=== PATIENT | male | born 1960 | race Caucasian/White ===

== ENCOUNTER 2016-08-12 15:05 | Inpatient (IN) | payer OTHER ==
[~2016-08-12] VITALS: Ht 180.3 cm; Wt 62.6 kg
--- NOTE | ~2016-08-12 | CON ---
[place], [place] REPORT OF CONSULTATION NAME: RAMANA GOMEZ UNIT #: [id number] ROOM: [facility] DOCTOR: MISHA MASON BIRTHDATE: [birth year] DOS: 08/16/2016 PSYCH CONSULT HISTORY OF PRESENT ILLNESS: This is a 55-year-old male who presents to the [facility] due to alcohol withdrawal. States that he has been drinking since at very young age because of his essential tremors and now he drinks a bottle of rum per day, states his last drink was last night. Girlfriend who is also the POA states that he has not gotten out of his recliner, ate anything in almost a week. At that time, he has been coughing so hard that he vomit. He admits to having nausea and vomiting, upset stomach, chills, diarrhea, episodes of loose stool. The patient is in the ICU for withdrawals. At that time, he was having diffuse body-wide tremors and was started on Librium and also because of his low potassium level, they hung up on the antibiotic. PAST MEDICAL HISTORY: Includes chronic alcohol abuse, approximately one bottle of rum a day, contact dermatitis, delirium tremors, depression, alcohol liver disease, essential tremors, hemorrhoids, hypertension, leukopenia, pancolitis, history of pneumonia, seizures due to alcohol withdrawal, thrombocytopenia, Wernicke encephalopathy. HOSPITAL COURSE: The ICU doctors did start him on Librium and withdrawal protocols. Eventually, they were able to get out of him that he did have these essential tremors and that he was on Inderal LA to help with them. I did speak with his nurse. She states that his tremors have improved since beginning this medication. The patient is denying feeling like he is going through alcohol withdrawals. However, the nurse did bring to my attention that he has not slept in 2 or 3 days and that he endorses positive hallucinations. DIAGNOSIS: Alcohol withdrawal. MENTAL STATUS: The patient is very soft spoken. It is difficult to understand him at times, but he appears to be alert and oriented to person and place. There are hallucinations per nursing, some delusions. No paranoia. No pham or hypomania. Poor sleep, poor appetite but the patient is eating at bedside right as we speak. PLAN: I concur with the Librium that the doctors have him on. I am going to go ahead and pull away on the trazodone, it is ineffective, it is not working. The nurses also state that the Ativan is not touching him as far as helping him get to sleep and based on this and the fact that he is having hallucinations, I am going to start him on 50 mg of Seroquel in the morning and 100 mg at night. My goal is to break the psychosis, the hallucinations, but also at these doses there should be enough of sedation quality. I will follow up with nurses in the morning then and see if this dose helped with his sleep. If not, I will titrate this up. As the hallucinations clear and his sleep is returned, most likely the Seroquel can be discontinued. [place], [place] REPORT OF CONSULTATION NAME: RAMANA GOMEZ UNIT #: [id number] ROOM: [facility] DOCTOR: MISHA MASON BIRTHDATE: [birth year] MOSUTAPHA MASON CNP CM:CONSTR:REPORT OF CONSULTATION [id number] 08/17/16 0145 interface
[~2016-08-12 15:05] MED LIST: 'CLONIDINE0.1 MG PO; ASPIRIN ADULT L81 MG PO; ATARAX,VISTARIL50 MG PO; ATIVAN0.5 MG PO; CHLORDIAZEPOXID25 MG PO; DAYPRO600 M1 PO; DOXYCYCLINE100 MG PO; FLAGYL500 MG PO; FOLIC ACID1 MG PO; HYDROCHLOROTHIA25 MG PO; K LYTE PO; LIBRIUM25 MG PO; LISINOPRIL20 MG PO; LISINOPRIL40 MG PO; MAGNESIUM OXID400 MG PO; MULTIVITAMIN1 TA1 PO; Mysoline50 MG PO; NATURE'S BLEND F1 MG PO; NICODERM21 MG/24 H TD; PRIMIDONE1 GM PO; PROPRANOLOL ER PO; PROPRANOLOL HC160 M1 PO; PROPRANOLOL HCL10 MG PO; PROPRANOLOL HYD60 MG PO; PROTONIX40 MG PO; SYMBICORT1 AE1 INH; THERA TABS1 TAB PO; THIAMINE100 MG PO; VENTOLIN H0.09 MG/AC INH; VITAMIN B-11 TAB PO; [UNRECOGNIZED DRUG - OTHER] PO
[2016-08-12 15:07] VITALS: BP 150/102
[2016-08-12 15:31] LABS: HEMATOCRIT 35.5 % (42.0-52.0); HEMOGLOBIN 13.1 g/dl (14.0-18.0); MEAN CELL VOLUME 97.3 fl (80.0-94.0); MEAN CORPUSCULAR HGB 35.9 pg (27.0-31.0); MEAN CORPUSCULAR HGB CONC 36.9 g/dl (33.0-37.0); MEAN PLATELET VOLUME 11.6 fl (9.6-12.3); PLATELET COUNT AUTOMATED 40 10*3/uL (130-400); RED BLOOD COUNT 3.65 10*6/uL (4.50-5.90); RED CELL DISTRI WIDTH 15.2 % (0-14.5); WHITE BLOOD COUNT 4.2 10*3/uL (4.8-10.8)
[2016-08-12 15:47] LABS: ALBUMIN 3.9 gm/dl (3.1-4.5); ALKALINE PHOSPHATASE 106 U/L (45-117); BILIRUBIN, TOTAL 1.6 mg/dl (0.2-1.0); BUN 6 mg/dl (7-24); CARBON DIOXIDE 31 mmol/L (21-32); CHLORIDE 94 mmol/L (98-107); CPK 184 U/L (39-308); EST GLOM FILT AFRICAN AMERICAN > 60 ml/min; GLUCOSE 159 mg/dL (65-99); POTASSIUM 2.9 mmol/L (3.5-5.1); SGOT/AST 124 IU/L (3-35); SGPT/ALT 39 U/L (12-78); SODIUM 139 mmol/L (136-145); TOTAL PROTEIN 7.8 gm/dL (6.4-8.2)
[2016-08-12 15:48] LABS: CKMB 1.1 ng/ml (0.5-3.6)
[2016-08-12 15:51] LABS: HYPOCHROMIA SLIGHT; LYMPHOCYTE # 0.5 10*3/uL (1.3-4.4); MONOCYTE # 0.3 10*3/uL (0.1-1.0); NEUTROPHIL # 3.4 10*3/uL (2.3-7.9); NEUTROPHILS 80 % (47-73); PLATELET SUFFICIENCY LOW (NORMAL); TOTAL CELLS COUNTED 100 #CELLS; TOXIC GRANULATION SLIGHT
[2016-08-12 15:52] LABS: TROPONIN I < 0.015 ng/ml (<0.045)
[2016-08-12 15:54] LABS: THYROID STIM HORMONE (HS) 0.469 uIU/ml (0.358-4.75)
[2016-08-12 17:30] VITALS: BP 148/97
[2016-08-12 18:54] VITALS: BP 141/88
[2016-08-12 20:00] VITALS: BP 150/87
[2016-08-13] VITALS: BP 135/89
[2016-08-13 04:00] VITALS: BP 125/81
[2016-08-13 04:01] LABS: BILIRUBIN NEGATIVE (NEGATIVE); BLOOD NEGATIVE (NEGATIVE); CLARITY CLEAR (CLEAR); COLOR YELLOW (YELLOW); GLUCOSE NEGATIVE (NEGATIVE); KETONE 1+ (NEGATIVE); LEUKO ESTERASE NEGATIVE (NEGATIVE); NITRITE NEGATIVE (NEGATIVE); PH 6.5 (5.0-9.0); PROTEIN NEGATIVE (NEGATIVE); SPECIFIC GRAVITY <= 1.005 (1.005-1.030)
[2016-08-13 04:10] LABS: URINE AMPHETAMINES < 1000 (1000ng/ml); URINE BARBITURATES > 200 (200ng/ml); URINE COCAINE < 300 (300ng/ml)
[2016-08-13 04:13] LABS: URINE REFLEX COMMENT NO (NO); WBC 0-2 wbc/hpf (0-5)
[2016-08-13 07:28] LABS: BASO % 0.5 % (0.0-1.0); EOS # 0.1 10*3/uL (0.0-0.4); EOS % 1.2 % (1.0-4.0); HEMATOCRIT 33.9 % (42.0-52.0); HEMOGLOBIN 12.2 g/dl (14.0-18.0); LYMPH # 1.2 10*3/uL (1.3-4.4); LYMPH % 29.1 % (27.0-41.0); MEAN CELL VOLUME 98.8 fl (80.0-94.0); MEAN CORPUSCULAR HGB 35.6 pg (27.0-31.0); MEAN PLATELET VOLUME 12.1 fl (9.6-12.3); MONO # 0.4 10*3/uL (0.1-1.0); MONO % 8.7 % (3.0-9.0); NEUT # 2.4 10*3/uL (2.3-7.9); NEUT % 59.8 % (47.0-73.0); PLATELET COUNT AUTOMATED 38 10*3/uL (130-400); RED BLOOD COUNT 3.43 10*6/uL (4.50-5.90); RED CELL DISTRI WIDTH 15.3 % (0-14.5)
[2016-08-13 07:29] LABS: HEMOGLOBIN A1c 5.4 % (4.8-5.6)
[2016-08-13 07:32] LABS: BUN 4 mg/dl (7-24); CARBON DIOXIDE 30 mmol/L (21-32); CHLORIDE 98 mmol/L (98-107); GLUCOSE 75 mg/dL (65-99); MAGNESIUM 1.6 mg/dL (1.5-2.1); PHOSPHOROUS 1.9 mg/dL (2.5-4.9); SODIUM 142 mmol/L (136-145)
[2016-08-13 07:33] LABS: PROTHROMBIN TIME 10.7 SECONDS (9.0-12.4)
[2016-08-13 07:42] LABS: CHOLESTEROL 160 mg/dL (<200); EST GLOM FILT AFRICAN AMERICAN > 60 ml/min; FREE T4 0.95 ng/dl (0.76-1.46); HDL CHOLESTEROL 129 mg/dl (40-60); LDL CHOLESTEROL 11 mg/dL (9-159); THYROID STIM HORMONE (HS) 0.973 uIU/ml (0.358-4.75); TRIGLYCERIDES 100 mg/dl (<150); VLDL CHOLESTEROL 20 mg/dL (6-40)
[2016-08-13 07:47] LABS: POTASSIUM 2.3 mmol/L (3.5-5.1)
[2016-08-13 08:00] VITALS: BP 131/91
[2016-08-13 08:18] LABS: VITAMIN D, 25-HYDROXY 10.8 ng/mL (30-100)
[2016-08-13 08:19] LABS: FOLIC ACID 10.21 ng/mL (>5.38)
[2016-08-13 12:00] VITALS: BP 133/84
[2016-08-13 16:00] VITALS: BP 124/86
[2016-08-13 20:00] VITALS: BP 121/81
[2016-08-14] VITALS: BP 128/86
[2016-08-14 04:05] VITALS: BP 113/67
[2016-08-14 08:00] VITALS: BP 127/83
[2016-08-14 11:05] LABS: BUN 6 mg/dl (7-24); CARBON DIOXIDE 31 mmol/L (21-32); CHLORIDE 104 mmol/L (98-107); EST GLOM FILT AFRICAN AMERICAN > 60 ml/min; GLUCOSE 128 mg/dL (65-99); MAGNESIUM 1.3 mg/dL (1.5-2.1); PHOSPHOROUS 2.5 mg/dL (2.5-4.9); POTASSIUM 2.6 mmol/L (3.5-5.1); SODIUM 143 mmol/L (136-145)
[2016-08-14 12:00] VITALS: BP 131/87
[2016-08-14 16:00] VITALS: BP 106/71
[2016-08-14 20:00] VITALS: BP 120/78
[2016-08-15] VITALS: BP 144/86
[2016-08-15 04:00] VITALS: BP 137/79
[2016-08-15 05:53] LABS: BUN 6 mg/dl (7-24); CARBON DIOXIDE 29 mmol/L (21-32); CHLORIDE 106 mmol/L (98-107); EST GLOM FILT AFRICAN AMERICAN > 60 ml/min; GLUCOSE 90 mg/dL (65-99); SODIUM 147 mmol/L (136-145)
[2016-08-15 06:05] LABS: POTASSIUM 2.4 mmol/L (3.5-5.1)
[2016-08-15 08:00] VITALS: BP 173/91
[2016-08-15 12:00] VITALS: BP 168/93
[2016-08-15 12:26] LABS: ALBUMIN 3.1 gm/dl (3.1-4.5); ALKALINE PHOSPHATASE 69 U/L (45-117); BILIRUBIN, TOTAL 0.6 mg/dl (0.2-1.0); BUN 6 mg/dl (7-24); CARBON DIOXIDE 33 mmol/L (21-32); CHLORIDE 106 mmol/L (98-107); EST GLOM FILT AFRICAN AMERICAN > 60 ml/min; GLUCOSE 106 mg/dL (65-99); POTASSIUM 2.9 mmol/L (3.5-5.1); SGOT/AST 55 IU/L (3-35); SGPT/ALT 36 U/L (12-78); SODIUM 146 mmol/L (136-145); TOTAL PROTEIN 6.3 gm/dL (6.4-8.2)
[2016-08-15 12:32] LABS: MAGNESIUM 1.6 mg/dL (1.5-2.1)
[2016-08-15] MEDS ORDERED: MYSOLINE50 M2 PO (13:16)
[2016-08-15] MEDS ORDERED: INDERAL LA160 M1 PO (13:27)
[2016-08-15] MEDS ORDERED: ZESTRIL20 MG PO (13:31)
[2016-08-15] MEDS ORDERED: NALTREXONE50 MG PO (13:32)
[2016-08-15 16:00] VITALS: BP 131/86
[2016-08-15 20:06] VITALS: BP 147/93
[2016-08-16] VITALS: BP 150/97
[2016-08-16 04:00] VITALS: BP 157/98; BP 164/92
[2016-08-16 05:33] LABS: ALBUMIN 3.3 gm/dl (3.1-4.5); ALKALINE PHOSPHATASE 68 U/L (45-117); BILIRUBIN, TOTAL 0.6 mg/dl (0.2-1.0); BUN 7 mg/dl (7-24); CARBON DIOXIDE 31 mmol/L (21-32); CHLORIDE 106 mmol/L (98-107); EST GLOM FILT AFRICAN AMERICAN > 60 ml/min; GLUCOSE 104 mg/dL (65-99); POTASSIUM 2.8 mmol/L (3.5-5.1); SGOT/AST 45 IU/L (3-35); SGPT/ALT 37 U/L (12-78); SODIUM 146 mmol/L (136-145); TOTAL PROTEIN 6.4 gm/dL (6.4-8.2)
[2016-08-16 06:02] LABS: BASO % 0.7 % (0.0-1.0); EOS # 0.2 10*3/uL (0.0-0.4); EOS % 3.5 % (1.0-4.0); HEMATOCRIT 32.7 % (42.0-52.0); HEMOGLOBIN 11.4 g/dl (14.0-18.0); LYMPH # 1.2 10*3/uL (1.3-4.4); LYMPH % 25.9 % (27.0-41.0); MEAN CELL VOLUME 101.2 fl (80.0-94.0); MEAN CORPUSCULAR HGB 35.3 pg (27.0-31.0); MEAN CORPUSCULAR HGB CONC 34.9 g/dl (33.0-37.0); MEAN PLATELET VOLUME 10.9 fl (9.6-12.3); MONO # 0.7 10*3/uL (0.1-1.0); MONO % 14.4 % (3.0-9.0); NEUT # 2.5 10*3/uL (2.3-7.9); NEUT % 55.3 % (47.0-73.0); PLATELET COUNT AUTOMATED 107 10*3/uL (130-400); RED BLOOD COUNT 3.23 10*6/uL (4.50-5.90); RED CELL DISTRI WIDTH 15.7 % (0-14.5); WHITE BLOOD COUNT 4.5 10*3/uL (4.8-10.8)
[2016-08-16 06:14] VITALS: BP 160/95
[2016-08-16 12:00] VITALS: BP 120/88
[2016-08-16 16:00] VITALS: BP 128/90
[2016-08-16 20:00] VITALS: BP 125/86
[2016-08-17] VITALS: BP 135/90
[2016-08-17 04:00] VITALS: BP 144/91
[2016-08-17 06:05] LABS: ALBUMIN 3.2 gm/dl (3.1-4.5); ALKALINE PHOSPHATASE 67 U/L (45-117); BILIRUBIN, TOTAL 0.6 mg/dl (0.2-1.0); BUN 8 mg/dl (7-24); CARBON DIOXIDE 31 mmol/L (21-32); CHLORIDE 108 mmol/L (98-107); EST GLOM FILT AFRICAN AMERICAN > 60 ml/min; GLUCOSE 96 mg/dL (65-99); MAGNESIUM 2.1 mg/dL (1.5-2.1); POTASSIUM 3.1 mmol/L (3.5-5.1); SGOT/AST 42 IU/L (3-35); SGPT/ALT 36 U/L (12-78); SODIUM 148 mmol/L (136-145); TOTAL PROTEIN 6.4 gm/dL (6.4-8.2)
[2016-08-17 06:12] LABS: BASO % 0.7 % (0.0-1.0); EOS # 0.2 10*3/uL (0.0-0.4); EOS % 3.5 % (1.0-4.0); HEMATOCRIT 33.4 % (42.0-52.0); HEMOGLOBIN 11.9 g/dl (14.0-18.0); LYMPH # 1.3 10*3/uL (1.3-4.4); LYMPH % 28.8 % (27.0-41.0); MEAN CELL VOLUME 102.1 fl (80.0-94.0); MEAN CORPUSCULAR HGB 36.4 pg (27.0-31.0); MEAN CORPUSCULAR HGB CONC 35.6 g/dl (33.0-37.0); MEAN PLATELET VOLUME 10.2 fl (9.6-12.3); MONO # 0.9 10*3/uL (0.1-1.0); MONO % 18.8 % (3.0-9.0); NEUT # 2.2 10*3/uL (2.3-7.9); NEUT % 47.8 % (47.0-73.0); RED BLOOD COUNT 3.27 10*6/uL (4.50-5.90); RED CELL DISTRI WIDTH 15.6 % (0-14.5); WHITE BLOOD COUNT 4.6 10*3/uL (4.8-10.8)
[2016-08-17 06:17] LABS: PLATELET COUNT AUTOMATED 146 10*3/uL (130-400)
[2016-08-17 07:50] VITALS: BP 152/94
[2016-08-17 12:00] VITALS: BP 106/61
[2016-08-17 15:47] VITALS: BP 102/60
[2016-08-17 20:00] VITALS: BP 149/85
[2016-08-18] VITALS: BP 138/72
[2016-08-18 04:00] VITALS: BP 156/76
[2016-08-18 06:22] LABS: BASO % 0.6 % (0.0-1.0); EOS # 0.1 10*3/uL (0.0-0.4); EOS % 2.9 % (1.0-4.0); HEMATOCRIT 31.7 % (42.0-52.0); HEMOGLOBIN 11.3 g/dl (14.0-18.0); LYMPH # 1.4 10*3/uL (1.3-4.4); LYMPH % 30.3 % (27.0-41.0); MEAN CELL VOLUME 102.3 fl (80.0-94.0); MEAN CORPUSCULAR HGB 36.5 pg (27.0-31.0); MEAN CORPUSCULAR HGB CONC 35.6 g/dl (33.0-37.0); MEAN PLATELET VOLUME 10.4 fl (9.6-12.3); MONO # 0.9 10*3/uL (0.1-1.0); MONO % 18.7 % (3.0-9.0); NEUT # 2.2 10*3/uL (2.3-7.9); NEUT % 47.1 % (47.0-73.0); RED CELL DISTRI WIDTH 15.5 % (0-14.5); WHITE BLOOD COUNT 4.8 10*3/uL (4.8-10.8)
[2016-08-18 06:26] LABS: PLATELET COUNT AUTOMATED 194 10*3/uL (130-400)
[2016-08-18 06:30] LABS: ALBUMIN 2.9 gm/dl (3.1-4.5); BUN 10 mg/dl (7-24); CARBON DIOXIDE 31 mmol/L (21-32); CHLORIDE 105 mmol/L (98-107); GLUCOSE 97 mg/dL (65-99); MAGNESIUM 1.7 mg/dL (1.5-2.1); POTASSIUM 3.1 mmol/L (3.5-5.1); SODIUM 144 mmol/L (136-145)
[2016-08-18 06:34] LABS: ALKALINE PHOSPHATASE 65 U/L (45-117); BILIRUBIN, TOTAL 0.5 mg/dl (0.2-1.0); EST GLOM FILT AFRICAN AMERICAN > 60 ml/min; SGOT/AST 32 IU/L (3-35); SGPT/ALT 35 U/L (12-78); TOTAL PROTEIN 6.2 gm/dL (6.4-8.2)
[2016-08-18 08:00] VITALS: BP 140/70
[2016-08-18 12:00] VITALS: BP 113/65
[2016-08-18 16:00] VITALS: BP 145/79
[2016-08-18 20:00] VITALS: BP 99/64
[2016-08-19] VITALS: BP 102/72
[2016-08-19 04:00] VITALS: BP 109/63
[2016-08-19 06:20] LABS: BASO % 0.9 % (0.0-1.0); EOS # 0.1 10*3/uL (0.0-0.4); EOS % 2.7 % (1.0-4.0); HEMATOCRIT 31.7 % (42.0-52.0); LYMPH # 1.8 10*3/uL (1.3-4.4); MEAN CELL VOLUME 102.9 fl (80.0-94.0); MEAN CORPUSCULAR HGB 35.7 pg (27.0-31.0); MEAN CORPUSCULAR HGB CONC 34.7 g/dl (33.0-37.0); MEAN PLATELET VOLUME 10.2 fl (9.6-12.3); MONO # 0.8 10*3/uL (0.1-1.0); MONO % 17.6 % (3.0-9.0); NEUT # 1.7 10*3/uL (2.3-7.9); NEUT % 38.6 % (47.0-73.0); PLATELET COUNT AUTOMATED 244 10*3/uL (130-400); RED BLOOD COUNT 3.08 10*6/uL (4.50-5.90); RED CELL DISTRI WIDTH 15.4 % (0-14.5); WHITE BLOOD COUNT 4.4 10*3/uL (4.8-10.8)
[2016-08-19 06:54] LABS: ALBUMIN 2.8 gm/dl (3.1-4.5); BILIRUBIN, TOTAL 0.4 mg/dl (0.2-1.0); BUN 6 mg/dl (7-24); CARBON DIOXIDE 30 mmol/L (21-32); CHLORIDE 107 mmol/L (98-107); EST GLOM FILT AFRICAN AMERICAN > 60 ml/min; GLUCOSE 87 mg/dL (65-99); MAGNESIUM 1.8 mg/dL (1.5-2.1); SGOT/AST 30 IU/L (3-35); SGPT/ALT 35 U/L (12-78); SODIUM 142 mmol/L (136-145); TOTAL PROTEIN 6.2 gm/dL (6.4-8.2)
[2016-08-19 06:55] LABS: ALKALINE PHOSPHATASE 62 U/L (45-117)
[2016-08-19 07:02] LABS: POTASSIUM 4.1 mmol/L (3.5-5.1)
[2016-08-19 08:00] VITALS: BP 127/79
[2016-08-19 12:00] VITALS: BP 93/64
[2016-08-19 16:00] VITALS: BP 105/79
[2016-08-19 20:00] VITALS: BP 134/88
[2016-08-20] VITALS: BP 136/90
[2016-08-20 06:07] LABS: BASO % 0.8 % (0.0-1.0); EOS # 0.1 10*3/uL (0.0-0.4); EOS % 2.5 % (1.0-4.0); HEMATOCRIT 31.2 % (42.0-52.0); HEMOGLOBIN 10.7 g/dl (14.0-18.0); LYMPH # 1.8 10*3/uL (1.3-4.4); LYMPH % 36.5 % (27.0-41.0); MEAN CORPUSCULAR HGB 35.3 pg (27.0-31.0); MEAN CORPUSCULAR HGB CONC 34.3 g/dl (33.0-37.0); MEAN PLATELET VOLUME 10.4 fl (9.6-12.3); MONO # 0.9 10*3/uL (0.1-1.0); MONO % 18.8 % (3.0-9.0); NEUT % 40.8 % (47.0-73.0); PLATELET COUNT AUTOMATED 262 10*3/uL (130-400); RED BLOOD COUNT 3.03 10*6/uL (4.50-5.90); RED CELL DISTRI WIDTH 15.3 % (0-14.5); WHITE BLOOD COUNT 4.9 10*3/uL (4.8-10.8)
[2016-08-20 06:26] LABS: ALBUMIN 2.8 gm/dl (3.1-4.5); ALKALINE PHOSPHATASE 59 U/L (45-117); BILIRUBIN, TOTAL 0.4 mg/dl (0.2-1.0); BUN 9 mg/dl (7-24); CARBON DIOXIDE 28 mmol/L (21-32); CHLORIDE 106 mmol/L (98-107); EST GLOM FILT AFRICAN AMERICAN > 60 ml/min; GLUCOSE 94 mg/dL (65-99); MAGNESIUM 1.9 mg/dL (1.5-2.1); POTASSIUM 4.3 mmol/L (3.5-5.1); SGOT/AST 24 IU/L (3-35); SGPT/ALT 32 U/L (12-78); SODIUM 141 mmol/L (136-145)
[2016-08-20 08:00] VITALS: BP 150/92
[2016-08-20 12:00] VITALS: BP 142/90
[2016-08-20 16:00] VITALS: BP 132/86
[2016-08-20 20:00] VITALS: BP 119/72
[2016-08-21] VITALS: BP 108/67
[2016-08-21 06:03] LABS: HEMATOCRIT 33.5 % (42.0-52.0); HEMOGLOBIN 11.4 g/dl (14.0-18.0); MEAN CELL VOLUME 103.1 fl (80.0-94.0); MEAN CORPUSCULAR HGB 35.1 pg (27.0-31.0); MEAN PLATELET VOLUME 10.1 fl (9.6-12.3); PLATELET COUNT AUTOMATED 339 10*3/uL (130-400); RED BLOOD COUNT 3.25 10*6/uL (4.50-5.90); WHITE BLOOD COUNT 5.4 10*3/uL (4.8-10.8)
[2016-08-21 06:29] LABS: BASOPHIL # 0.1 10*3/uL (0-0.1); BASOPHILS 1 % (0-1); EOSINOPHIL # 0.1 10*3/uL (0-0.4); EOSINOPHILS 2 % (1-4); LYMPHOCYTE # 1.7 10*3/uL (1.3-4.4); MONOCYTE # 0.2 10*3/uL (0.1-1.0); NEUTROPHIL # 3.3 10*3/uL (2.3-7.9); NEUTROPHILS 61 % (47-73); PLATELET SUFFICIENCY NORMAL (NORMAL); POLYCHROMASIA SLIGHT; TOTAL CELLS COUNTED 100 #CELLS
[2016-08-21 06:33] LABS: BUN 7 mg/dl (7-24); CARBON DIOXIDE 28 mmol/L (21-32); CHLORIDE 101 mmol/L (98-107); EST GLOM FILT AFRICAN AMERICAN > 60 ml/min; GLUCOSE 105 mg/dL (65-99); MAGNESIUM 1.9 mg/dL (1.5-2.1); POTASSIUM 4.4 mmol/L (3.5-5.1); SODIUM 139 mmol/L (136-145)
[2016-08-21 08:00] VITALS: BP 123/77
[2016-08-21 12:00] VITALS: BP 111/73
[2016-08-21 16:00] VITALS: BP 116/82
[2016-08-21 20:00] VITALS: BP 119/70
[2016-08-22 00:57] VITALS: BP 119/70
[2016-08-22 08:00] VITALS: BP 149/76
[2016-08-22] MEDS ORDERED: KLOR-CON M2020 ME1 PO (11:03)
[2016-08-22] MEDS ORDERED: VITAMIN B-11 TAB PO (11:03)
[2016-08-22] MEDS ORDERED: PANTOPRAZOLE SO40 MG PO (11:03)
[2016-08-22] MEDS ORDERED: VITAMIN D5000 I3 PO (11:03)
[2016-08-22] MEDS ORDERED: THERA TABS1 TAB PO (11:03)
[2016-08-22] MEDS ORDERED: QUETIAPINE FUM100 M3 PO (11:03)
[2016-08-22] MEDS ORDERED: QUETIAPINE FUMA50 M1 PO (11:03)
[2016-08-22] MEDS ORDERED: NATURE'S BLEND F1 MG PO (11:03)
[2016-08-22] MEDS ORDERED: MAGNESIUM OXID400 MG PO (11:03)
[2016-08-22 12:00] VITALS: BP 120/77; BP 137/66
== END 2016-08-22 14:45 | disposition other institution (70) | DRG 897 ==
LOC: ED 15:05 → ICCU 15:42 → EDHOLD 15:42 → ICCU 15:51 → 5E 08-18 14:17
PROVIDERS: Internal Medicine; Internal Medicine Hospice and Palliative Medicine; Nurse Practitioner Family
DX: F10.231 Alcohol dependence with withdrawal delirium (principal); D61.818 Other pancytopenia; E87.0 Hyperosmolality and hypernatremia; E87.8 Other disorders of electrolyte and fluid balance, not elsewhere classified; D69.6 Thrombocytopenia, unspecified; E44.1 Mild protein-calorie malnutrition; Z68.1 Body mass index [BMI] 19.9 or less, adult; E87.6 Hypokalemia; K72.90 Hepatic failure, unspecified without coma; I10 Essential (primary) hypertension; D72.819 Decreased white blood cell count, unspecified; G25.0 Essential tremor; F32.9 Major depressive disorder, single episode, unspecified; F17.210 Nicotine dependence, cigarettes, uncomplicated; R00.0 Tachycardia, unspecified; K70.10 Alcoholic hepatitis without ascites; D53.9 Nutritional anemia, unspecified; E83.42 Hypomagnesemia; E83.39 Other disorders of phosphorus metabolism; Z82.3 Family history of stroke; Z82.49 Family history of ischemic heart disease and other diseases of the circulatory system; Z79.2 Long term (current) use of antibiotics; Z79.899 Other long term (current) drug therapy